=== PATIENT | female | born 1990 ===

== ENCOUNTER 2017-03-28 12:19 | Inpatient (IN) | payer MEDICAID, OTHER ==
[~2017-03-28] VITALS: Ht 152.4 cm; Wt 54.0 kg
[2017-03-28 12:19] VITALS: BP 110/72; PULSE 87; RESP 16; O2SAT 97
--- NOTE | 2017-03-28 12:44 | ED.REPORT ---
HPI-Psychiatric Illness Date of Service March 28, 2017 ED Provider: Lance Rm DO Pt is a 27 y.o. female with a reported hx of bipolar disorder with manic depression who presents to the ED via EMS with suicidal ideation. Pt's mother had noticed pt had been acting differently over the past few days. She reports that today the pt ran out the front door, mother states that she finally found the pt in a bathroom on their property. Pt was reportedly surrounded by ETOH, THC products, and multiple "suicide notes". Mother also noticed self-inflicted lacerations to her bilateral thighs. Mother contacted EMS for transport. Upon examination pt is uncooperative and nonverbal. She does shake her head no when asked if she consumed any medications. Nursing Notes Stated Complaint: SUICIDAL IDEATIONS Chief Complaint: Psychiatric Complaint Nursing Notes Reviewed: Yes Allergies: Coded Allergies: No Known Allergies (Unverified , 03/28/17) No Active Prescriptions or Reported Meds General Time Seen by MD: 12:44 Chief Complaint Suicidal ideation Hx Obtained From: Patient, Other family... (Mother), EMS Unable to Obtain Hx: Patient condition, Uncooperative Arrived By: Ambulance Onset Occurred: Onset unknown Caused by: Cut self Location: : Leg left: Leg right Risk-Psychiatric Illness Suicide Risk Stratification RF Statements: Risk factors reviewed Past Medical History Past Medical History Per mother - h/o bipolar depression Past Surgical History None reported Ambulatory Status Independent Review of Systems Unable to Obtain ROS Patient condition, Uncooperative Psychiatric: Reports: Depression, Suicidal ideation, Denies: Homicidal ideation Complete sys rev & neg: except as marked. Physical Exam Initial Vital Signs Vital Signs (First) Date Time Temp Pulse Resp B/P Pulse Ox O2 Delivery O2 Flow Rate FiO2 03/28/17 12:19 36.2 87 16 110/72 97 Room Air Initial VS: Reviewed Abdomen / GI: Soft, Non-tender, No guarding, No rebound, No distention Extremities: Vascular intact, Neuro intact Skin: Warm, Dry, No cyanosis General/Constitutional: Well developed, Well hydrated, Well nourished, Not toxic appearing Behavior: Positive: Uncooperative Pt is currently non-verbal She will occasionally nod yes or no. She does not participate in examination. Mental Status: Positive: Unresponsive (Uncooperative) Abnormal Mood/Affect: Positive: Depressed Abnormal Thinking / Perception: Positive: Suicidal, with plan Head / Eyes: Atraumatic, Normocephalic Respiratory / Chest: Atraumatic, Breath sounds NL, Breath sounds = bilat, No respiratory distress Cardiovascular: Heart rate NL, Regular rhythm, Heart sounds NL, Peripheral circulation NL Lower Extremity / Pelvis / MS: Neurologic intact, Vascular intact Trauma / Burn / Environmental: Positive: Laceration Superficial linear cut swift to bilateral lateral thighs. Supeficial cut swift to bilateral ankles. Interpretation & Diagnostics Lab Results Interpretation Result Diagram: 03/28/17 1350 03/28/17 1350 Test 03/28/17 13:50 White Blood Count 8.6th/mm3 (3.8-10.1) Red Blood Count 5.09mil/mm3 (3.90-5.20) Hemoglobin 14.5g/dL (12.0-15.6) Hematocrit 42.4% (35.0-46.0) Mean Corpuscular Volume 83.3fL (81-100) Mean Corpuscular Hemoglobin 28.5pg (27.0-35.0) Mean Corpuscular Hemoglobin Concent 34.2% (32.0-37.0) Red Cell Distribution Width 12.8% (12.3-15.4) Platelet Count 280bil/L (150-400) Neutrophils (%) (Auto) 73.9% (40-74) Lymphocytes (%) (Auto) 20.9% (14-46) Monocytes (%) (Auto) 3.6% (4-12) Eosinophils (%) (Auto) 0.1% (0-5) Basophils (%) (Auto) 1.3% (0-3) Sodium Level 137mEq/L (134-144) Potassium Level 4.5mEq/L (3.5-5.2) Chloride Level 95mEq/L (97-108) Carbon Dioxide Level 24mmol/L (18-29) Blood Urea Nitrogen 5mg/dL (6-20) Creatinine 0.58mg/dL (0.57-1.00) Estimat Glomerular Filtration Rate 181mL/min (>59) Glucose Level 92mg/dL (60-99) Calcium Level 9.8mg/dL (8.5-10.1) Total Bilirubin 0.2mg/dL (0.0-1.2) Aspartate Amino Transf (AST/SGOT) 22U/L (0-50) Alanine Aminotransferase (ALT/SGPT) 9U/L (0-32) Alkaline Phosphatase 84U/L (25-150) Total Protein 7.5g/dL (6.4-8.4) Albumin 4.8g/dL (3.4-5.0) Thyroid Stimulating Hormone (TSH) 1.030uIU/mL (0.450-4.500) Alcohols 145mg/dL (0-10) Re-Eval/Medical Decision Med Decision/Clinical Course Patient was evaluated by the social secretary and then the [facility]. She will be detained and admitted to the hospital. Source of Hx: Parent Re-Evaluation/Progress : Time of Eval: 18:00 Re-Evaluation/Progress Note: Pt care transferred to Dr. Carlson Pt has been seen and evaluated by CARE TRAINER Counseled Regarding: Diagnosis, Lab results, Need for follow-up, When/why to return to ED Discharge & Departure Shift Change Sign-Out Patient Care Transferred: Yes (Robyn) Discussed Complaint(s): Yes Impression: Primary Impression: Depression with suicidal ideation Disposition: ADMITTED TO HOSPITAL Discharge Condition All VS Reviewed: Yes Condition: Improved Care Transferred to: Dr. Carlson Care Transferred at: 18:00 Landy Attestation Portions of this note were transcribed by Ngoc Hurd. I, Dr. Rm personally performed the history, physical exam and medical decision-making; I reviewed and confirmed the accuracy of the information in the transcribed note. Signed by: Landy Enciso, 03/28/17 and Lance Johnson DO March 28, 2017 12:44 NGOC HURD March 28, 2017 16:27 Kaveh Carlson DO March 29, 2017 18:08
[2017-03-28 13:06] VITALS: BP 110/72; PULSE 87; RESP 16; O2SAT 97
[2017-03-28 13:56] LABS: BASOPHILS % (AUTO) 1.3 % (0-3); EOSINOPHILS % (AUTO) 0.1 % (0-5); MONOCYTES % (AUTO) 3.6 % (4-12); Mean Corpuscular Hemoglobin 28.5 pg (27.0-35.0); Mean Corpuscular Volume 83.3 fL (81-100); NEUTROPHILS % (AUTO) 73.9 % (40-74); Platelet Count 280 bil/L (150-400)
[2017-03-28 15:37] VITALS: BP 110/64; PULSE 95; O2SAT 97
[2017-03-28 22:48] VITALS: BP_SYST 110; BP_SYST 127; BP_DIAS 64; BP_DIAS 77; PULSE 78; PULSE 95; RESP 16; O2SAT 97; O2SAT 98
[2017-03-29] MEDS ORDERED: hydrOXYzine Pamoate 25 mg Capsule PO PRN (00:25)
[2017-03-29] MEDS ORDERED: Alum-Mag Hydrox-Simeth 30 mL Suspension PO PRN (00:25)
[2017-03-29] MEDS ORDERED: Benzocaine-Menthol Lozenge 2/Pkg PO PRN ×2 (00:25→15:50)
[2017-03-29] MEDS ORDERED: Magnesium Hydroxide 10 mL Oral Concentration PO PRN (00:25)
[2017-03-29] MEDS: LORazepam 1 mg Tablet PO PRN ×2 (00:42→07:48)
[2017-03-29 12:58] VITALS: BP 108/74; PULSE 107; RESP 16
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
[2017-03-29] MEDS: BusPIRone 15 mg Dividose Tablet PO SCH (21:01)
[2017-03-30 08:30] VITALS: BP 121/83; PULSE 92; RESP 19
[2017-03-30] MEDS: BusPIRone 15 mg Dividose Tablet PO SCH ×2 (09:23→22:17)
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
[2017-03-30] MEDS: LORazepam 1 mg Tablet PO PRN (22:19)
[2017-03-31] MEDS: BusPIRone 15 mg Dividose Tablet PO SCH ×2 (09:29→20:52)
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
[2017-03-31 19:30] VITALS: BP 109/70; PULSE 74; RESP 16
[2017-04-01] MEDS: BusPIRone 15 mg Dividose Tablet PO SCH ×2 (08:54→20:45)
[2017-04-01 10:08] VITALS: BP 101/67; PULSE 74; RESP 16
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
[2017-04-01] MEDS: LORazepam 1 mg Tablet PO PRN (23:17)
[2017-04-02] MEDS: BusPIRone 15 mg Dividose Tablet PO SCH (08:08)
[2017-04-02] MEDS ORDERED: BUSP15TA3 PO (13:13)
[2017-04-02] MEDS ORDERED: FLUO20CA25 PO (13:13)
--- NOTE | 2017-04-02 13:19 | PCM.DIMED ---
Discharge Instructions Date of Service April 02, 2017 Dates of Hospitalization March 28, 2017 at 22:39 Discharge Diagnosis Discharge Diagnosis [place] I. 1. Major depressive disorder. 2. Rule out substance-induced mood disorder, tetrahydrocannabinol. 3. Posttraumatic stress disorder. 4. Tetrahydrocannabinol abuse. [place] II. Borderline personality traits. [place] III. None. [place] IV. Moderate. [place] V. Current Global Assessment of Functioning equal to 45 Diet No restrictions Activity No restrictions Call your provider Fever or Chills Patient Instructions I Strongly encouraged patient to follow up with outpatient care: 1-Recommended patient takes medication as prescribed and not alter this unless under the direct care of a provider. 2-Recommend client refrain from recreational drugs and alcohol while taking psychiatric medications. 3-Recommend client start a 12 step program to deal with issues of addiction. 4-Recommend patient attempt to find a therapist or group to deal with impulse control and interpersonal relationship conflicts Follow-up plan Please see case filler AJ's note for follow-up with outpatient therapy and psychiatric medication management. Follow-up with PCP in: 2 weeks Elia Gray MD April 02, 2017 13:19
[2017-04-02 14:06] VITALS: BP 91/60; PULSE 92; RESP 16
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
== END 2017-04-02 14:40 | disposition home or self-care (01) | DRG 881 ==
LOC: EDBD 12:19 → SED 12:19 → MHC 22:39
PROVIDERS: ADMIT Psychiatry & Neurology Psychiatry; ATTEND Psychiatry & Neurology Psychiatry
DX: F32.9 Major depressive disorder, single episode, unspecified (principal); R45.851 Suicidal ideations; F43.10 Post-traumatic stress disorder, unspecified; F12.90 Cannabis use, unspecified, uncomplicated; Z91.5 Personal history of self-harm; F60.3 Borderline personality disorder; S71.112A Laceration without foreign body, left thigh, initial encounter; S71.111A Laceration without foreign body, right thigh, initial encounter; S91.012A Laceration without foreign body, left ankle, initial encounter; S91.011A Laceration without foreign body, right ankle, initial encounter; X78.1XXA Intentional self-harm by knife, initial encounter; Y92.009 Unspecified place in unspecified non-institutional (private) residence as the place of occurrence of the external cause